=== PATIENT | female | born 1980 ===

== ENCOUNTER 2020-09-02 13:42 | Outpatient (CLI) | payer OTHER ==
--- NOTE | 2020-09-02 15:43 | Ultrasound Report ---
ULTRASOUND OBSTETRIC LIMITED INDICATION / CLINICAL INFORMATION: Viability/No Heart Tone. Clinical Gestational Age (GA): 19.1 weeks.days COMPARISON: None available. FINDINGS: There is a single intrauterine gestation. [place]-rump length measures 5.65 cm, corresponding to a gestational age of 12 weeks, 2 days. No heart tones are identified. IMPRESSION: Single intrauterine gestation without evidence of heart tones. Findings are compatible with fet al demise. Signer Name: Arturo Jiang MD Signed: 09/02/2020 3:38 PM Workstation Name: [id number]
[2020-09-02 18:22] VITALS: BP 97/51
== END 2020-09-02 13:43 | disposition home or self-care (01) ==
LOC: TRG 13:42 → US 13:42 → APU 13:44 → TRG 13:44
PROVIDERS: ATTEND Obstetrics & Gynecology
DX: Z34.82 Encounter for supervision of other normal pregnancy, second trimester (principal); Z3A.18 18 weeks gestation of pregnancy
CPT/HCPCS: 76815

== ENCOUNTER 2020-09-02 15:42 | Emergency (ER) | payer OTHER ==
[2020-09-02 17:05] VITALS: BP 143/86
--- NOTE | 2020-09-02 17:16 | Event Note ---
ED Screening Note ED Screening Note: 40-year-old female 18 weeks was at a doctor's office was unable to find a heart tones advised to come to the outpatient ultrasound for further evaluation was found to have demise. Were consulted by the [facility] who did recommend admission for definitive treatment but unable to admit due to having no beds and advised due to her symptoms or lack thereof she is safe to come back on September 04 for admission and definitive treatment of this unfortunate miscarriage. She reports no vaginal bleeding has vague mild intermittent cramps at maximum 3 out of 10 no nausea vomiting no urinary symptoms. Physical examination lungs are clear to auscultation heart is regular rate and rhythm abdomen soft positive bowel sounds This initial assessment/diagnostic orders/clinical plan/treatment(s) is/are subject to change based on patients health status, clinical progression and re-assessment by fellow clinical providers in the ED. Further treatment and workup at subsequent clinical providers discretion. Patient/guardian urged not to elope from the ED as their condition may be serious if not clinically assessed and managed. Initial orders include: To [facility] for admission as recommended in the woman's center
== END 2020-09-02 17:34 | disposition left against medical advice (07) ==
LOC: ED 15:42
DX: O26.892 Other specified pregnancy related conditions, second trimester (principal); Z53.21 Procedure and treatment not carried out due to patient leaving prior to being seen by health care provider

== ENCOUNTER 2020-09-05 | Emergency (ER) | payer SELFPAY ==
[2020-09-05 00:53] LABS: Hematocrit 39.9 % (30.3-42.9); Hemoglobin 13.9 gm/dl (10.1-14.3); Mean Corpuscular HGB Conc 35 % (30-34); Mean Corpuscular Volume 95 fl (79-97); Platelet Count 183 K/mm3 (140-440); Red Blood Count 4.22 M/mm3 (3.65-5.03); Red Cell Distribution Width 12.6 % (13.2-15.2)
[2020-09-05 01:08] LABS: BUN/Creatinine Ratio 19; Blood Urea Nitrogen 15 mg/dL (7-17); Calcium 9.8 mg/dL (8.4-10.2); Hemolysis Index 7
--- NOTE | 2020-09-05 01:30 | Emergency Department Report ---
ED Female HPI - General Chief complaint: Vaginal Bleeding Stated complaint: VAG BLEEDING Time Seen by Provider: 09/05/20 00:55 Source: patient Mode of arrival: Wheelchair Limitations: Language Barrier - History of Present Illness Initial comments: I use her Salvadorean language line deaf interpreter via phone obtained history. HPI: This is a 40-year-old female who is currently 12 weeks 5 days according to recent ultrasound. 3 days ago at this hospital outside of surgical ultrasound diagnosis single intrauterine gestation without evidence of heart tones. demise diagnosed. 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 She walked into her clinic today. Appointment was not available. She came to the ER for vaginal bleeding which occurred this evening. She is concerned that fetus has been extruded. Complaint: vaginal bleeding -: Sudden, This morning Severity: mild (No pain) Severity scale (0 -10): 0 Quality: other (No pain) Consistency: now resolved Improves with: none Worsens with: none Are you Now?: Yes Associated Symptoms: vaginal bleeding - Related Data Previous Rx's Medication Instructions Recorded Last Taken Type Ibuprofen [Motrin 600 MG tab] 600 mg PO Q6H PRN #30 tablet 09/17/15 Unknown Rx Allergies Allergy/AdvReac Type Severity Reaction Status Date / Time No Known Allergies Allergy Verified 09/15/15 13:22 ED Review of Systems ROS: Stated complaint: VAG BLEEDING Other details as noted in HPI Comment: All other systems reviewed and negative Constitutional: denies: fever, malaise Respiratory: denies: cough, shortness of breath Gastrointestinal: denies: abdominal pain, nausea, vomiting ED Past Medical Hx - Past Medical History Previous Medical History?: No Hx Hypertension: No Hx Congestive Heart Failure: No Hx Diabetes: No Hx Deep Vein Thrombosis: No Hx Renal Disease: No Hx Sickle Cell Disease: No Hx Seizures: No Hx Asthma: No Hx COPD: No Hx HIV: No - Surgical History Past Surgical History?: No - Social History Smoking Status: Never Smoker Substance Use Type: None - Medications Home Medications: Home Medications Medication Instructions Recorded Confirmed Last Taken Type Ibuprofen [Motrin 600 MG tab] 600 mg PO Q6H PRN #30 tablet 09/17/15 Unknown Rx ED Physical Exam - General Limitations: Language Barrier General appearance: alert, in no apparent distress - Head Head exam: Present: atraumatic, normocephalic - Eye Eye exam: Present: normal appearance - ENT ENT exam: Present: mucous membranes moist - Neck Neck exam: Present: normal inspection, full ROM - Respiratory Respiratory exam: Present: normal lung sounds bilaterally. Absent: respiratory distress, wheezes, rales, rhonchi - Cardiovascular Cardiovascular Exam: Present: regular rate, normal rhythm, normal heart sounds. Absent: systolic murmur, diastolic murmur, rubs, gallop - GI/Abdominal GI/Abdominal exam: Present: soft, normal bowel sounds. Absent: distended, tenderness, guarding, rebound - External exam: Present: other (fetus attached to umbilical cord extruding from vaginal vault.) Speculum exam: Present: tissue (Tissue present in vaginal vault) - Extremities Exam Extremities exam: Present: normal inspection - Neurological Exam Neurological exam: Present: alert, oriented X3 - Psychiatric Psychiatric exam: Present: normal affect, normal mood - Skin Skin exam: Present: warm, dry, intact, normal color. Absent: rash ED Course Vital Signs 09/05/20 09/05/20 09/05/20 00:17 00:47 01:00 Temperature 97.8 F Pulse Rate 84 Respiratory 16 Rate Blood Pressure 142/85 113/72 O2 Sat by Pulse 98 98 99 Oximetry 09/05/20 09/05/20 09/05/20 01:15 01:30 01:45 Temperature Pulse Rate Respiratory Rate Blood Pressure 119/70 125/74 118/67 O2 Sat by Pulse 100 100 100 Oximetry 09/05/20 09/05/20 09/05/20 02:00 02:15 02:30 Temperature Pulse Rate Respiratory Rate Blood Pressure 104/63 103/62 101/59 O2 Sat by Pulse 99 98 Oximetry 09/05/20 09/05/20 09/05/20 02:45 03:00 03:15 Temperature Pulse Rate Respiratory Rate Blood Pressure 106/61 103/55 106/59 O2 Sat by Pulse 98 99 98 Oximetry 09/05/20 09/05/20 09/05/20 03:30 03:49 04:00 Temperature Pulse Rate Respiratory Rate Blood Pressure 108/65 106/61 104/69 O2 Sat by Pulse 82 L Oximetry 09/05/20 09/05/20 04:15 04:30 Temperature Pulse Rate Respiratory Rate Blood Pressure 104/66 105/57 O2 Sat by Pulse 98 100 Oximetry ED Medical Decision Making - Lab Data Result diagrams: 09/05/20 00:34 09/05/20 00:34 - Radiology Data Radiology results: report reviewed Limited OB Ultrasound HISTORY: poss miscarriage. Acute generalized abdominal pain TECHNIQUE: Grayscale and color imaging performed. COMPARISON: OB ultrasound from 3 days prior FINDINGS: Uterus measures 11.5 x 5.7 x 8.3 cm with endometrial echocomplex measuring 1.4 cm. No intrauterine gestation is identified. Ovaries are not visualized. No significant pelvic free fluid. IMPRESSION: No intrauterine gestation or retained products of conception identified. - Medical Decision Making Complete spontaneous miscarriage: On speculum exam I was able to extract intact fetus attached to placenta with umbilical cord. I was able to remove all products of conception present in vaginal vault. Ultrasound obtained after vaginal evacuation revealed absence of products of conception. Blood type O pos I provided discharge instructions and answer questions using [employer] [place] language line interpretation per phone Critical care attestation.: If time is entered above; I have spent that time in minutes in the direct care of this critically ill patient, excluding procedure time. ED Disposition Clinical Impression: Spontaneous miscarriage Disposition: DC-01 TO HOME OR SELFCARE Is pt being admited?: No Does the pt Need Aspirin: No Condition: Stable Instructions: Miscarriage, [id number] Print Language: IRANIAN
--- NOTE | 2020-09-05 03:51 | Ultrasound Report ---
Limited OB Ultrasound HISTORY: poss miscarriage. Acute generalized abdominal pain TECHNIQUE: Grayscale and color imaging performed. COMPARISON: OB ultrasound from 3 days prior FINDINGS: Uterus measures 11.5 x 5.7 x 8.3 cm with endometrial echocomplex measuring 1.4 cm. No intra uterine gestation is identified. Ovaries are not visualized. No significant pelvic free fluid. IMPRESSION: No intrauterine gestation or retained products of conception identified. Signer Name: Patric Jean Baptiste MD Signed: 09/05/2020 3:47 AM Workstation Name: [id number]
[2020-09-05 04:21] LABS: Bilirubin,Urine NEG (Negative); Blood,Urine LG (Negative); Color,Urine Red (Yellow); Mucus,Urine FEW /HPF; Urobilinogen,Urine < 2.0 mg/dL (<2.0)
[2020-09-05 04:26] LABS: RBC,Urine > 182.0 /HPF (0.0-6.0); WBC,Urine > 182.0 /HPF (0.0-6.0)
[2020-09-05 04:50] VITALS: BP 133/81
== END 2020-09-05 04:51 | disposition home or self-care (01) ==
LOC: ED
DX: O03.9 Complete or unspecified spontaneous abortion without complication (principal); Z79.899 Other long term (current) drug therapy; Z3A.12 12 weeks gestation of pregnancy
CPT/HCPCS: 36415; 76801; 80048; 81001; 84702; 85027; 86900; 86901